=== PATIENT | female | born 1975 | race African-American/Black ===

== ENCOUNTER → 2017-01-08 | Outpatient (CLI) | payer BC ==
--- NOTE | 2017-01-08 11:37 | RADIOLOGY REPORT (SQ) ---
EXAM DESCRIPTION: U/S NON-OB PELVIS TV W/O DOP COMPLETED DATE/TIME: 01/08/2017 10:47 am REASON FOR STUDY: (E66.01) (N92.5) N92.5 OTHER SPECIFIED IRREGULAR MENSTRUATION E66.01 MORBID (SEV ERE) OBESITY DUE TO EXCESS CALORIES COMPARISON: None. TECHNIQUE: Dynamic and static grayscale images acquired of the pelvis via transvaginal approach and recorded on PACS. Additional selected color Doppler and spectral images recorded. LIMITATIONS: None. FINDINGS: UTERUS: Contour normal. No mass. ENDOMETRIAL STRIPE: No focal or generalized thickening. No masses. CERVIX: No nabothian cysts. RIGHT OVARY: Ovary not visualized. LEFT OVARY: No abnormal masses. LEFT OVARY DOPPLER: Normal arterial vascular flow without evidence for torsion. FREE FLUID: None noted. OTHER: No other significant finding. MEASUREMENTS: UTERUS: 4.6 x 5.3 x 8.7 cm. ENDOMETRIAL STRIPE: 10 mm. RIGHT OVARY: Not visualized. LEFT OVARY: 2.1 x 2.0 x 2.4 cm. IMPRESSION: RIGHT OVARY NOT VISUALIZED. OTHERWISE UNREMARKABLE TRANSVAGINAL PELVIC ULTRASOUND. TECHNICAL DOCUMENTATION: JOB ID: [id number] [employer]- All Rights Reserved
== END ==
LOC: RAD 09:52
PROVIDERS: ATTEND Obstetrics & Gynecology Gynecology
DX: N92.5 Other specified irregular menstruation (principal); E66.01 Morbid (severe) obesity due to excess calories
CPT/HCPCS: 76830

== ENCOUNTER 2018-10-19 18:07 | Emergency (ER) | payer BC, MEDICAID ==
[2018-10-19] MEDS ORDERED: ONDANSETRON 4 MG TAB.RAPDIS PO ONE (20:22)
[2018-10-19] MEDS ORDERED: MECLIZINE HCL 25 MG TABLET PO ONE (20:22)
[2018-10-19] MEDS ORDERED: ACETAMINOPHEN 325 MG TABLET PO ONE (20:22)
--- NOTE | 2018-10-19 20:28 | ER Document Report ---
ED Medical Screen (RME) - General Chief Complaint: Dizziness Stated Complaint: DIZZINESS Time Seen by Provider: 10/19/18 20:15 Primary Care Provider: MALLIKA MOSES MD [Primary Care Provider] - Follow up as needed Notes: Patient is a 43-year-old female who presents to the emergency department with a chief complaint of dizziness. Her dizziness started this morning. Patient states that she thought it was just her anxiety, but she ended up standing up and she felt sweaty, lightheaded, and "weird." Patient denies any vomiting, but states that she felt nauseous while she was in the waiting room. She is having normal bowel movements. Exam: Clear breath sounds bilaterally to auscultation. 5 out of 5 strength in all extremities. I have greeted and performed a rapid initial assessment of this patient. A co mprehensive ED assessment and evaluation of the patient, analysis of test results and completion of medical decision making process will be conducted by an additional ED providers. TRAVEL OUTSIDE OF THE [place] IN LAST 30 DAYS: No COUNTRY TRAVELED TO/FROM: [facility] - Related Data Allergies/Adverse Reactions: aspirin [Aspirin] Allergy (Severe, Verified 02/10/14 18:22) Seizures Past Medical History - Social History Chew tobacco use (# tins/day): No Frequency of alcohol use: None Drug Abuse: None - Past Medical History Cardiac Medical History: Denies: Hx Coronary Artery Disease, Hx Heart Attack, Hx Hypertension Pulmonary Medical History: Denies: Hx Asthma, Hx Bronchitis, Hx COPD, Hx Pneumonia Neurological Medical History: Denies: Hx Cerebrovascular Accident, Hx Seizures Endocrine Medical History: Reports: Hx Hypothyroidism - when she was - none now Renal/ Medical History: Denies: Hx Peritoneal Dialysis GI Medical History: Reports: Hx Gastroesophageal Reflux Disease Musculoskeltal Medical History: Denies Hx Arthritis Past Surgical History: Reports: Hx Section - x3, Hx Tubal Ligation - Immunizations Hx Diphtheria, Pertussis, Tetanus Vaccination: Yes Physical Exam - Vital signs Vitals: Temp Pulse Resp BP Pulse Ox 97.9 F 76 20 133/76 H 98 10/19/18 18:36 10/19/18 18:36 10/19/18 18:36 10/19/18 18:36 10/19/18 18:36 Course - Vital Signs Vital signs: Temp Pulse Resp BP Pulse Ox 97.9 F 76 20 133/76 H 98 10/19/18 18:36 10/19/18 18:36 10/19/18 18:36 10/19/18 18:36 10/19/18 18:36 Doctor's Discharge - Discharge Referrals: MALLIKA MOSES MD [Primary Care Provider] - Follow up as needed
[2018-10-19 20:44] LABS: ABSOLUTE LYMPHOCYTES (AUTO) 1.6 10^3/uL (0.5-4.7); ABSOLUTE MONOCYTES (AUTO) 0.6 10^3/uL (0.1-1.4); ABSOLUTE NEUT (AUTO) 6.2 10^3/uL (1.7-8.2); BASOPHILS % (AUTO) 0.3 % (0-2); EOSINOPHILS % (AUTO) 0.6 % (0-6); HEMATOCRIT 38.9 % (36.0-47.0); HEMOGLOBIN 12.6 g/dL (12.0-15.5); LYMPHOCYTES % (AUTO) 19.1 % (13-45); MEAN CORPUSCULAR HEMOGLOBIN 28.2 pg (27.0-33.4); MEAN CORPUSCULAR HGB CONC 32.5 g/dL (32.0-36.0); MEAN CORPUSCULAR VOLUME 87 fl (80-97); MONOCYTES % (AUTO) 7.1 % (3-13); PLATELET COUNT 292 10^3/uL (150-450); RED BLOOD COUNT 4.48 10^6/uL (3.72-5.28); RED CELL DISTRIBUTION WIDTH 15.3 % (11.5-14.0); SEGMENTED NEUTROPHILS % (AUTO) 72.9 % (42-78); TOTAL CELLS COUNTED % (AUTO) 100 %; WHITE BLOOD COUNT 8.5 10^3/uL (4.0-10.5)
[2018-10-19 20:51] LABS: APPEARANCE,URINE CLEAR; BILIRUBIN,URINE NEGATIVE (NEGATIVE); COLOR,URINE YELLOW; GLUCOSE, URINE NEGATIVE (NEGATIVE); KETONES,URINE NEGATIVE (NEGATIVE); LEUKOCYTE ESTERASE,URINE NEGATIVE (NEGATIVE); NITRITE,URINE NEGATIVE (NEGATIVE); PROTEIN,URINE NEGATIVE (NEGATIVE); URINE SPECIFIC GRAVITY 1.028; UROBILINOGEN,URINE NEGATIVE mg/dL (<2.0)
[2018-10-19 21:23] LABS: ALBUMIN 4.3 g/dL (3.5-5.0); ALKALINE PHOSPHATASE 95 U/L (38-126); ANION GAP 8 (5-19); ASPARTATE AMINO TRANSFERASE 28 U/L (14-36); BILIRUBIN,DIRECT 0.2 mg/dL (0.0-0.4); BILIRUBIN,TOTAL 0.3 mg/dL (0.2-1.3); BLOOD UREA NITROGEN 13 mg/dL (7-20); CALCIUM 9.6 mg/dL (8.4-10.2); CARBON DIOXIDE 26 mmol/L (22-30); CHLORIDE 105 mmol/L (98-107); GLUCOSE 96 mg/dL (75-110); POTASSIUM 4.3 mmol/L (3.6-5.0); TOTAL PROTEIN 8.1 g/dL (6.3-8.2)
--- NOTE | 2018-10-20 02:15 | ER Document Report ---
ED Dizziness/Weakness - General Chief Complaint: Dizziness Stated Complaint: DIZZINESS Time Seen by Provider: 10/19/18 20:15 Primary Care Provider: CATE MONROE MD [ACTIVE STAFF] - Follow up in 3-5 days Notes: This is a 43-year-old female patient emergency department chief complaint dizziness. Patient states she was at the [facility] earlier today. She began to feel dizzy and felt like she was going to throw up. She did not have any chest pain. No shortness of breath. States that she laid down and felt better. When she got back up she felt dizzy again with nausea. She laid back down. This happened one more time and she called a friend. She stated that her friend was concerned and told her to go to the hospital to get checked out. Patient has been waiting 9 hours to be seen by a physician. States that she was given some medication when she was initially triaged and she feels much better at this time. Would like to go home. TRAVEL OUTSIDE OF THE [place] IN LAST 30 DAYS: No COUNTRY TRAVELED TO/FROM: [facility] Patient complains to provider of: Dizziness, Vertigo Onset: Just prior to arrival Onset/Duration: Gone Quality of pain: No pain - Related Data Allergies/Adverse Reactions: aspirin [Aspirin] Allergy (Severe, Verified 02/10/14 18:22) Seizures Past Medical History - General Information source: Patient - Social History Smoking Status: Never Smoker Chew tobacco use (# tins/day): No Frequency of alcohol use: None Drug Abuse: None Family History: Reviewed & Not Pertinent, Other - Mi- Mother and maternal Grandmother in their 60's Patient has suicidal ideation: No Patient has homicidal ideation: No - Past Medical History Cardiac Medical History: Denies: Hx Coronary Artery Disease, Hx Heart Attack, Hx Hypertension Pulmonary Medical History: Denies: Hx Asthma, Hx Bronchitis, Hx COPD, Hx Pneumonia Neurological Medical History: Denies: Hx Cerebrovascular Accident, Hx Seizures Endocrine Medical History: Reports: Hx Hypothyroidism - when she was - none now Renal/ Medical History: Denies: Hx Peritoneal Dialysis GI Medical History: Reports: Hx Gastroesophageal Reflux Disease Musculoskeletal Medical History: Denies Hx Arthritis Past Surgical History: Reports: Hx Section - x3, Hx Tubal Ligation - Immunizations Hx Diphtheria, Pertussis, Tetanus Vaccination: Yes Review of Systems - Review of Systems Notes: Constitutional: denies: Chills, Diaphoresis, Fever, Malaise, Weakness EENT: denies: Eye discharge, Blurred vision, Tearing, Double vision, Nose congestion, Nose discharge, Throat swelling, Mouth pain Cardiovascular: denies: Palpitations, Heart racing, Orthopnea, Dyspnea, Chest pain Respiratory: denies: Cough, Hurts to breathe, Wheezing, Shortness of breath Gastrointestinal: denies: Abdominal pain, Diarrhea, Nausea, Vomiting, Black stools, bright red blood in stool Genitourinary: denies: Burning, Dysuria, Discharge, Frequency, Flank pain, Hematuria Musculoskeletal: denies: Joint pain, Joint swelling, Muscle pain, Muscle stiffness, back pain Hematologic/Lymphatic: denies: Anemia, Easy bleeding, Easy bruising, Blood clots Neurological/Psychological: denies: Confusion, Dementia, Depression, Loss of consciousness+ dizziness Skin: No lesions, no masses, no skin breakdown, no abscesses Physical Exam - Vital signs Vitals: Temp Pulse Resp BP Pulse Ox 97.9 F 76 20 133/76 H 98 10/19/18 18:36 10/19/18 18:36 10/19/18 18:36 10/19/18 18:36 10/19/18 18:36 Interpretation: Normal - General General appearance: Appears well, Alert - HEENT Head: Normocephalic, Atraumatic Eyes: Normal Pupils: PERRL - Respiratory Respiratory status: No respiratory distress Chest status: Nontender Breath sounds: Normal Chest palpation: Normal - Cardiovascular Rhythm: Regular Heart sounds: Normal auscultation Murmur: No - Abdominal Inspection: Normal Distension: No distension Bowel sounds: Normal Tenderness: Nontender Organomegaly: No organomegaly - Back Back: Normal, Nontender - Extremities General upper extremity: Normal inspection, Nontender, Normal color, Normal ROM, Normal temperature General lower extremity: Normal inspection, Nontender, Normal color, Normal ROM, Normal temperature, Normal weight bearing. No: James's sign - Neurological Neuro grossly intact: Yes Cognition: Normal Orientation: AAOx4 Stephanie Coma Scale Eye Opening: Spontaneous [place] Coma Scale Verbal: Oriented Stephanie Coma Scale Motor: Obeys Commands [place] Coma Scale Total: 15 Speech: Normal Motor strength normal: LUE, RUE, LLE, RLE Sensory: Normal - Psychological Associated symptoms: Normal affect, Normal mood - Skin Skin Temperature: Warm Skin Moisture: Dry Skin Color: Normal Course - Re-evaluation Re-evalutation: 10/20/18 02:11 Laboratory 10/19/18 10/19/18 10/19/18 20:30 20:30 20:30 WBC 8.5 RBC 4.48 Hgb 12.6 Hct 38.9 MCV 87 MCH 28.2 MCHC 32.5 RDW 15.3 H Plt Count 292 Seg Neutrophils % 72.9 Lymphocytes % 19.1 Monocytes % 7.1 Eosinophils % 0.6 Basophils % 0.3 Absolute Neutrophils 6.2 Absolute Lymphocytes 1.6 Absolute Monocytes 0.6 Absolute Eosinophils 0.0 Absolute Basophils 0.0 Sodium 139.1 Potassium 4.3 Chloride 105 Carbon Dioxide 26 Anion Gap 8 BUN 13 Creatinine 0.72 Est GFR ( Amer) > 60 Est GFR (Non-Af Amer) > 60 Glucose 96 Calcium 9.6 Total Bilirubin 0.3 Direct Bilirubin 0.2 Neonat Total Bilirubin Not Reportable Neonat Direct Bilirubin Not Reportable Neonat Indirect Bili Not Reportable AST 28 ALT 19 Alkaline Phosphatase 95 Total Protein 8.1 Albumin 4.3 Urine Color YELLOW Urine Appearance CLEAR Urine pH 5.0 Ur Specific [place] 1.028 Urine Protein NEGATIVE Urine Glucose (UA) NEGATIVE Urine Ketones NEGATIVE Urine Blood NEGATIVE Urine Nitrite NEGATIVE Urine Bilirubin NEGATIVE Urine Urobilinogen NEGATIVE Ur Leukocyte Esterase NEGATIVE Urine WBC (Auto) 1 Urine RBC (Auto) 0 Squamous Epi Cells Auto 3 Urine Mucus (Auto) OCC Urine Ascorbic Acid 20 H Urine HCG, Qual NEGATIVE Patient is well-appearing in no acute distress. Seems to have reproducible dizziness with head movement. More likely this represents benign positional vertigo. Feel very comfortable at this time letting her go home. She has a normal EKG, normal labs. She has a good primary care doctor that can follow-up with these symptoms if they get worse. Patient feels comfortable with this plans. Orthostatic vital signs were performed by myself and she is not orthostatic. She has no chest pain. Her symptoms are much better with meclizine and Zofran so I will continue that as an outpatient. Patient is comfortable with this plan. Will discharge at this time in stable condition. - Vital Signs Vital signs: Temp Pulse Resp BP Pulse Ox 97.9 F 76 20 133/76 H 98 10/19/18 18:36 10/19/18 18:36 10/19/18 18:36 10/19/18 18:36 10/19/18 18:36 - Laboratory Result Diagrams: 10/19/18 20:30 10/19/18 20:30 Laboratory results interpreted by me: 10/19/18 10/19/18 20:30 20:30 RDW 15.3 H Urine Ascorbic Acid 20 H - EKG Interpretation by Me EKG shows normal: Sinus rhythm, [place], Intervals, QRS Complexes, ST-T Waves Discharge - Discharge Clinical Impression: Benign positional vertigo Qualifiers: Laterality: unspecified laterality Qualified Code(s): H81.10 - Benign paroxysmal vertigo, unspecified ear Condition: Good Disposition: HOME, SELF-CARE Instructions: Antinausea Medication ([facility]), Meclizine ([facility]), Vertigo ([facility]) Additional Instructions: Please follow-up with your primary care doctor. If your symptoms are getting worse and you develop chest pain, shortness of breath, weakness on one side or the other, severe headache or any other concerns and please return for repeat evaluation. Prescriptions: Meclizine HCl [Antivert 25 mg Tablet] 25 mg PO TID 7 Days #21 tablet Ondansetron [Zofran Odt 4 mg Tablet] 1 - 2 tab PO Q4H PRN #15 tab.rapdis PRN Reason: For Nausea/Vomiting Referrals: CATE MONROE MD [ACTIVE STAFF] - Follow up in 3-5 days
[2018-10-20 02:27] VITALS: BP 128/68
--- NOTE | 2018-10-20 06:43 | EKG REPORT ---
SEVERITY:- NORMAL ECG - SINUS RHYTHM : Confirmed by: Rio Chatterjee MD 20-Oct-2018 06:42:04
== END 2018-10-20 02:27 | disposition home or self-care (01) ==
LOC: ER 18:07
DX: H81.10 Benign paroxysmal vertigo, unspecified ear (principal); R11.0 Nausea; Z88.8 Allergy status to other drugs, medicaments and biological substances
CPT/HCPCS: 93005; 99284; 36415; 85025; 81025; 80053; 81001; 93010; S0119